=== PATIENT | male | born 1985 | race African-American/Black ===

== ENCOUNTER 2021-04-04 21:45 | Emergency (ER) | payer OTHER ==
[~2021-04-04] VITALS: Ht 167.6 cm; Wt 72.6 kg
[2021-04-04 23:43] VITALS: BP 129/96
== END 2021-04-05 00:40 | disposition home or self-care (01) ==
LOC: ER 21:45
DX: S10.11XA Abrasion of throat, initial encounter (principal); Z88.0 Allergy status to penicillin; X58.XXXA Exposure to other specified factors, initial encounter; Y93.89 Activity, other specified; Y92.89 Other specified places as the place of occurrence of the external cause; Y99.8 Other external cause status